=== PATIENT | female | born 1970 | race Caucasian/White ===

== ENCOUNTER 2018-09-09 06:06 | Day surgery (SDC) | payer OTHER, SELFPAY ==
--- NOTE | 2018-08-30 08:02 | PCM.HP.BLA ---
History and Physical Date of Admission: 09/09/18 Carolyn Hood is a 48 year old female who presents for consultation for Hysterectomy. Pt has h/o Persistent cervical dysplasia unable to perform another leep due to Flush cervix with vagina. Pt has had LEEP performed 2005. Most recent colposcopy revealed ARCHIE 2 but due to minimal cervix procedure was canceled and patient was counseled on Hysterectomy. Pt understands she will need continued monitoring of vaginal vault with pap. Pt offers no complaints today- denies CP, SOB, dizziness. ? PAST?MEDICAL?HISTORY PAST MEDICAL HISTORY Diagnosis Date ? 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 Colon polyp 05/20/2017 ? Endometriosis ? ? Pelvic/abdominal pain, heavy periods better on OCP ? Iron deficiency anemia ? ? During childhood, not related to periods ? PAST?SURGICAL?HISTORY PAST SURGICAL HISTORY Procedure Laterality Date ? L'SCOPE DX W/WO BRUSHINGS/WASHINGS ? ? ? endometriosis, ? removal ? LAP APPENDICOSTOMY ? 04/16/2017 ? LEEP PROCEDURE ([facility])_*[place] ? 2005 ? Cervical Dysplasia ? PAST SURGICAL HISTORY OF ? ? ? Right inguinal HERNIA REPAIR ? PAST SURGICAL HISTORY OF ? 2002 ? HERNIATED DISC BACK (Lumbar) ? PILONIDAL CYST/SINUS EXCISION ? ? ? Low back ? FAMILY?HISTORY FAMILY HISTORY Problem Relation Age of Onset ? Heart Mother ? ? CAD started in her 60s ? Heart Father ? ? Valve Replace ? Arthritis Maternal Grandmother ? ? SOCIAL?HISTORY Social History Socioeconomic History Marital status: Single Spouse name: Not on file Number of children: 0 Years of education: Not on file Highest education level: Not on file Social Needs Financial resource strain: Not on file Food insecurity - worry: Not on file Food insecurity - inability: Not on file Transportation needs - medical: Not on file Transportation needs - non-medical: Not on file Occupational History Occupation: SOFTWARE DEVELOPMENT MANAGER Employer: [employer] Tobacco Use Smoking status: Never Smoker Smokeless tobacco: Never Used Substance and Sexual Activity Alcohol use: Yes Alcohol/week: 3.0 oz Types: 2 Glasses of Wine (5oz) per week Comment: 2 glasses of wine/wk Drug use: No Sexual activity: Not Currently control/protection: Pill Other Topics Concerns: Service: Not Asked Blood Transfusions: Not Asked Caffeine Concern: Not Asked Occupational Exposure: Not Asked Hobby Hazards: Not Asked Sleep Concern: Not Asked Stress Concern: Not Asked Weight Concern: Not Asked Special Diet: Not Asked Back Care: Not Asked Exercise: Yes 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 CURRENT?MEDICATIONS ? Current Outpatient Medications: oxyCODONE-acetaminophen (PERCOCET) 5-325 mg tablet Take 1 tablet by mouth every 4 hours as needed for up to 7 days. docusate sodium (COLACE) 100 mg capsule Take 1 capsule by mouth twice daily. ibuprofen (MOTRIN) 600 mg tablet Take 1 tablet by mouth every 6 hours as needed. FOR PAIN. simethicone, chewable (MYLICON) 80 mg chewable tablet Take 1 tablet by mouth every 6 hours as needed. norethindrone-e.estradiol-iron (LO LOESTRIN FE) 1 mg-10 mcg (24)/10 mcg (2) tab Take 1 tablet by mouth once daily. EPINEPHrine (EPIPEN) 0.3 mg/0.3 mL auto-injector Inject 0.3 mL intramuscularly as needed. ? No current facility-administered medications for this visit. Allergies As of Date: 08/23/2018 Allergen Noted Reaction CIPROFLOXACIN 05/13/2017 Anaphylaxis POISON LISSY 02/02/2010 ? Fully Assessed 08/23/2018 ? ? REVIEW OF SYSTEMS Abdomen: No abdominal pain, nausea, vomiting, diarrhea, or constipation. Bladder: no dysuria .. Expanded ROS: GENERAL: Negative for fever Allergies and current medication updated:Yes ? EXAM: BP 122/72 Wt 157 lb (71.2kg) ? GENERAL: pleasant, female in no apparent distress HEENT: Normocephalic, atraumatic and no lesions NECK: Supple and full range of motion DERMATOLOGY: Normal, without lesions, non-icteric and non-hirsute CARDIAC: regular rate and rhythm CHEST: Clear to auscultation Normal inspiratory effort PELVIC: not performed today NEURO: alert and oriented x3,exam grossly non-focal ? Gynecological Ultrasonography: Uterus: abnormal. Size: Longitudinal 63 mm. Anterio- posterior 42 mm. Transverse 59 mm. Volume: 81.7 ?ml. Fibroids: Fibroid 1: Size: 21 mm x 33 mm x 24 mm. Type: anterior. Position: mid-uterus. Structure homogeneous. Endometrium thickness total: 3.8 mm. Right Ovary: normal. Visible. Right Ovary size: 30 mm x 23 mm x 25 mm. Volume: 9.0 ml. Left Ovary: normal. Visible. Left Ovary size: 28 mm x 19 mm x 18 mm. Volume: 5.0 ml. Bladder / Kidneys: Right Kidney: normal. Left Kidney: normal. ? ASSESSMENT AND PLAN: Encounter Diagnosis ? ? ICD-10-CM ? 1. Post-op pain G89.18 oxyCODONE-acetaminophen (PERCOCET) 5-325 mg tablet ? 2. Pt given all post op meds 3. Pt scheduled for TLH, BIlateral salpingectomy, Cysto 4. Consent signed Pt has been counseled on risks/benefits and alternatives of surgery including but not limited to anesthesia, bleeding, infection, injury to pelvic structures including bowel, bladder, ureters and vessels. Pt wishes to proceed with surgery at this time. 5. ERAS protocol reviewed ? ? Jessica Cabrera MD ?
[2018-09-09] VITALS (7 sets, daily range): BP systolic 99–128; BP diastolic 63–75; PULSE 59–76; RESP 16–20; TEMP 36.3–37.3; O2SAT 98–100; BMI 28.3
--- NOTE | 2018-09-09 06:13 | EKG12_ITS ---
Test Reason : PRE-OP Blood Pressure : / mmHG Vent. Rate : 068 BPM Atrial Rate : 068 BPM P-R Int : 134 ms QRS Dur : 084 ms QT Int : 388 ms P-R-T Axes : 038 010 040 degrees QTc Int : 412 ms Normal sinus rhythm Normal ECG Confirmed by VIOLETTE CASTANEDA, JUAN ([id number]), television news video editor CITLLAI GOEL ([id number]) on 09/13/2018 5:35:10 PM Referred By: Jessica Cabrera Confirmed By:JUAN OAKES MD
[2018-09-09 06:40] LABS: Internal QC Validated? YES +Cl - CLEAR BKGD; Pregnancy, Urine Negative Negative
[2018-09-09] MEDS: Gabapentin 600 MG Tablet PO (06:43)
[2018-09-09] MEDS: Acetaminophen 500 MG Tablet 1000 MG PO (06:44)
[2018-09-09] MEDS: Phenazopyridine 95 MG Tablet 190 MG PO (06:44)
[2018-09-09] MEDS: Celecoxib 200 MG Capsule 400 MG PO (06:44)
[2018-09-09] MEDS: Scopolamine 1mg/72hr Patch 1 PATCH TRANSDERM. (06:44)
[2018-09-09] MEDS: Enoxaparin 40 MG/0.4 ML Syringe SC (06:45)
[2018-09-09 06:48] LABS: Hematocrit 39.8 % (37-47); Hemoglobin 13.8 g/dl (12.0-15.0); Mean Corp Hgb Conc 34.7 g/gl (32-36); Mean Corpuscular Hgb 31.2 pg (27.0-32.0); Mean Platelet Vol. 10.5 fl (6.2-12.0); Platelet Count 280 K/mm3 (150-450); RBC Distribution Width CV 12.8 % (11.6-14.6); RBC Distribution Width SD 41.4 fl (35.1-43.9); Red Blood Count 4.42 M/mm3 (4.2-5.4); White Blood Count 8.7 K/mm3 (4.4-11.0)
[2018-09-09 06:50] LABS: Scan Indicated on CBC? Y/N NO
[2018-09-09] MEDS: Magnesium Sulfate 4gm/100mL 4 GM/100 ML IV.SOLN. IV (06:52)
[2018-09-09] MEDS: Lactated Ringers 1,000 ML 40 ML IV (06:52)
[2018-09-09 06:59] LABS: Anion Gap 7 (5-15); BUN 10 mg/dL (7-18); BUN/Creat Ratio 13.3 RATIO (10-20); Calcium,Total 8.4 mg/dL (8.5-10.1); Chloride 105 mmol/L (98-107); Creatinine, Serum 0.75 mg/dL (0.55-1.02); EST Glomerular Filtration Rate 87 mL/min (>60); Est Glom Filt Rate - Afr Amer 105 mL/min (>60); Estimated Creatinine Clearance 70.98 ml/min; Glucose 94 mg/dL (74-106); Potassium 3.4 mmol/L (3.5-5.1); Sodium Level 138 mmol/L (136-145)
[2018-09-09] MEDS: Cefazolin 2 GM in 0.9% Normal Saline 100 ML IV (07:25)
--- NOTE | 2018-09-09 07:30 | HYST_PTH ---
PATIENT: TRACY MANCILLA [place] [facility] [id number] AGE/SX: 48/F ROOM: RE09/09/[address]: Dr. Jessica Cabrera, MDDOB: 1970 BED: DIS: 09/09/2018 SPEC #: [id number] RECD: 09/09/18 10:29 STATUS: ANIVAL JUAN PABLO #: [id number] SILVIA: 09/09/18 07:[address]: Jessica Cabrera DEPT: SURGICAL PATHOLOGY RECD BY: Marciano Sahu ENTERED: 09/09/18 12:31 SP TYPE: HYSTERECT OTHR DR: Out of [facility] Doctor Tissues: Uterus, NOS Procedures: Surgery Specimen Level V HEADER OPERATION: ERAS, hysterectomy, laparoscopic, total, salpingectomy PRE-OP DIAGNOSIS: Persistent cervical dysplasia TISSUE SUBMITTED: Uterus, bilateral fallopian tubes - suture solares left lip of cervix MICROSCOPIC DIAGNOSIS Uterus, bilateral fallopian tubes, hysterectomy and bilateral salpingectomy: Cervix - no pathologic diagnosis. Endometrium - weakly proliferative endometrium. Myometrium - leiomyomas, intramural, serosal and submucosal (largest measuring 6.6 cm in greatest dimension). Bilateral fallopian tubes - no pathologic diagnosis. SJ:nora 09/10/18 MICROSCOPIC DESCRIPTION Slides are reviewed. GROSS DESCRIPTION Received in fixative is one container labeled with the patient's name and designated uterus. The specimen consists of a uterus received in seven fragments ranging in size from 1 to 14 cm and in aggregate weighing 382 gm. The accompanying specimen label says suture left lip of cervix. However, no suture is attached to any portion of the cervix or the uterus. The uterus has been opened. The endocervical canal measures 2.8 cm in length and is grossly unremarkable. The cervix is amputated from the uterus. The plane of amputation is inked in green ink. The paracervical soft tissue is inked in blue ink. No gross lesions are identified on the cervix. The endometrial cavity measures 3.8 x 3 cm. The endometrium is light yancey, velvety and glistening and measures up to 0.1 cm in thickness. The myometrium is distorted by multiple spherical rubbery nodules ranging in size from 0.8 to 6.6 cm in greatest dimension. The nodules are intramural, subserosal and submucosal in location. On cut sections the nodules display a whorled appearance without areas of cyst formation, necrosis or hemorrhage. Also present free in the container are two fallopian tubes with attached fimbrial ends with an average length of 3.5 cm each and a maximal diameter of 0.6 cm each. No ovaries are present. Glost Placer sections are submitted in 12 cassettes as follows: 1 - anterior endometrium/myometrium, 2 - posterior endometrium/myometrium with adjacent myometrial nodules, 3 - largest myometrial nodule, 4 - second largest myometrial nodule, 5 - third largest myometrial mass, 6 - one fallopian tube, 7 - the other fallopian tube, 8-12 - cervix, totally submitted. / AM:nora 09/09/18 TC:1 CPT: 62550
[2018-09-09] MEDS: Lubricating Jelly 60 GM Tube 30 GM TOPICAL (07:52)
[2018-09-09] MEDS: Bupivacaine Mpf 0.5% 30 ML VIAL (09:45)
--- NOTE | 2018-09-09 10:07 | DCINST_ITS ---
Discharge Diet: No Restrictions Discharge Activity: Return to Normal Activity, May Not Drive - while taking narcotic pain medications., May Shower May resume sexual activity in: 6-8 weeks Lifting Restrictions: 20 Call your doctor if your incision/area has: Continuous Slow Oozing, Sudden Increased Bleeding, Increased Pain/ Swelling, Increased Redness, Foul Smelling Discharge Call your doctor if you observe: Fever of 101 or Higher, Inability to urinate, Inability to have a bowel movement, Using more than one pad per hour Cleanse incision/area with: Soap & Water, Keep Dressing Clean & Dry, - - you have skin glue-do not pick off. you may shower and let soap and water run over incision sites. dab dry. Allergies/Adverse Reactions: Allergies ciprofloxacin Allergy (Verified 09/02/18 15:06) Anaphylaxis Medications to take at Discharge Norethindrone-E.estradiol-Iron [Lo Loestrin Fe 1-10 Tablet] 1 each PO DAILY 09/02/18 Primary Care Physician: Jaimie Tobin,Out of [Primary Care Provider] - Test Results: Test results from this visit will be discussed in further detail at your follow- up appointment, if applicable. Please Follow Up With: Jessica Cabrera MD When: as scheduled
--- NOTE | 2018-09-09 10:17 | PCM.OPRPT ---
Report of Operation Date of Procedure: 09/09/18 Pre-Operative Diagnosis: persistent cervical dysplasia- CIN2 Post-Operative Diagnosis: same, fibroid uterus Surgery/Procedure Performed:: TLH, Bilateral salpingectomy, cystoscopy Description of Surgical Findings:: enlarged fibroid uterus- multiple subserosal fibroids noted, had large subserosal fibroid at fundal aspect- small bowel adherent to fundal fibroid. both ovaries appear normal. No omental studding, no other pelvic lesions noted. Cervix flush with vagina. real estate agent/broker: Kirsty Tubbs Type of Anesthesia:: General Special Medications: marcaine Specimen's removed: uterus, cervix, bilateral fallopian tubes Drains: none Estimated Blood Loss (mL): 100 Fluids Replaced: 750 Description of Procedure: Patient take to OR and prepped and draped in usual sterile fashion in dorsal lithotomy position with her arms tucked in a neurologically safe and neutral position. The uterus sounded to 9 cm. cervix flush with vagina. The small Vcare uterine manipulator was sutured into place at 3/9:00 position and mason were placed. Attention was turned to the abdomen. All port sites were infiltrated with 1% lidocaine before the incisions were made. The anterior abdominal wall was tented up with towel clamps and using a direct entry approach a 5 mm supra umbilical port was placed. Intraperitoneal placement was confirmed with the laparoscope and the pneumoperitoneum was created. The patient was placed in Trendelenburg and 5 mm right and left lower quadrant ports were placed under direct visualization. Air seal rapid insufflator was used. The bowel was swept away. enlarged fibroid uterus. multiple subserosal fibroids- largest was fundal. Ovaries appeared normal. The mesosalpinx starting at fimbriated end were grasped, clamped, sealed and transected with the Ligasure. The round ligaments were divided. The anterior peritoneum was dissected down to create the bladder flap with blunt dissection and the LigaSure. The uterine arteries were isolated, clamped, sealed and cut. There was minimal back bleeding from the uterus. Straight bites on uterine arteries performed to drop them off the cuff. The Vcare was used as guide to create colpotomy using monopolar tip of ligasure. once specimen was removed attention was turned to vaginal portion. Due to large specimen it was bivalved to lower uterine segment until it able to be delivered intact. The specimen was handed off. specimen weighed in OR and was 394 Grams. The cuff was closed with interrupted 0-vicryl figure of 8 sutures. Cystoscopy was performed bilateral ureters were visualized with good efflux. bladder was intact. mason replaced and sponge stick placed in vagina. The pneumoperitoneum was recreated and the cuff and pedicles were hemostatic. small fibroid noted near cuff that must have incidentally come off during removal of specimen from vagina. this fibroid was delivered through the RLQ port site. The skin incisions were closed with skin glue and 3-0 monocryl . The vaginal sweep was completed by me. the mason was removed prior to leaving OR. Grafts/Implants Used: none Grafts/Implants Used: none - Complications none - Admit VTE Documentation VTE Present on Admission: Yes VTE Mechan Device Prophylaxis: SCD's VTE Pharm Prophylaxis ordered?: Yes
[2018-09-09 13:01] LABS: Absolute Lymphocyte Count 0.76 X10^3/ul (0.83-4.51); Basophil# 0.01 X10^3/uL; Basophil% 0.1 % (0-1); Hematocrit 38.5 % (37-47); Hemoglobin 13.1 g/dl (12.0-15.0); Lymphocyte # 0.76 X10^3/ul (4.0); Lymphocyte % 4.4 % (19-41); Mean Platelet Vol. 10.3 fl (6.2-12.0); Monocyte# 0.26 X10^3/uL; Monocyte% 1.5 % (0-10); Neutrophil # 16.02 X10^3/uL (2.7-7.7); Neutrophil % 93.8 % (47-70); POSITIVE COUNT NO; POSITIVE DIFFERENTIAL NO; POSITIVE MORPHOLOGY NO; Platelet Count 248 K/mm3 (150-450); RBC Distribution Width CV 12.8 % (11.6-14.6); RBC Distribution Width SD 42.1 fl (35.1-43.9); Red Blood Count 4.23 M/mm3 (4.2-5.4); White Blood Count 17.1 K/mm3 (4.4-11.0)
== END 2018-09-09 14:25 | disposition home or self-care (01) ==
LOC: SDC 06:09 → AC 06:14
PROVIDERS: Obstetrics & Gynecology; Referring Provider Obstetrics & Gynecology; Visit Provider Obstetrics & Gynecology
PROC: 0UT94ZZ Resection of Uterus, Percutaneous Endoscopic Approach (ICD-10-PCS; CPT 52000; principal; 2018-09-09 07:10)
DX: D25.1 Intramural leiomyoma of uterus (principal); D25.0 Submucous leiomyoma of uterus; D25.2 Subserosal leiomyoma of uterus; Z85.41 Personal history of malignant neoplasm of cervix uteri
CPT/HCPCS: 00840; 52000; 58573; 80048; 81025; 85025; 85027; 86850; 86900; 88307; 93005; J7120; J2405